=== PATIENT | female | born 1940 | race Caucasian/White ===

== ENCOUNTER 2016-08-31 07:31 | Emergency (ER) | payer MEDICARE, OTHER ==
[2016-08-31 07:58] LABS: APPEARANCE CLOUDY (CLEAR); BILIRUBIN NEGATIVE (NEGATIVE); COLOR YELLOW (YELLOW); GLUCOSE NEGATIVE (NEGATIVE); KETONE NEGATIVE (NEGATIVE); LEUKOCYTE ESTERASE 2+ (NEGATIVE); NITRITE NEGATIVE (NEGATIVE); PROTEIN NEGATIVE (NEGATIVE); UROBILINOGEN NORMAL (NORMAL)
[2016-08-31 08:04] LABS: BACTERIA MODERATE /hpf (NONE SEEN); RED CELLS - URINE 0-5 /hpf (0-5)
[2016-08-31 08:05] LABS: MUCUS <1+ /lpf (NONE SEEN)
[2016-08-31 08:08] LABS: BASOPHILS 0.3 % (0-2); EOSINOPHILS 3.3 % (0-7); HEMATOCRIT 45.4 % (36.0-48.0); HEMOGLOBIN 15.5 g/dL (12-16); IMMATURE GRANULOCYTES 0.4 % (0-5); LYMPHOCYTES 34.9 % (15-50); MCH 33.9 pg (26.0-34.0); MCHC 34.1 g/dL (31.0-37.0); MCV 99.3 fL (80.0-100.0); MEAN PLATELET VOLUME 10.2 fL (7.4-10.4); MONOCYTES 7.3 % (2-11); NEUTROPHILS 53.8 % (40-80); PLATELET COUNT 235 10x3/uL (130-400); RBC 4.57 10x6/uL (4.00-5.40); RDW 12.5 % (11.5-14.5)
[2016-08-31 08:34] LABS: ALBUMIN 3.8 g/dL (3.4-5.0); ANION GAP 13.5 mmol/L (8-16); BILIRUBIN - TOTAL 0.76 mg/dL (0.2-1.3); CALCIUM 9.5 mg/dL (8.5-10.1); CARBON DIOXIDE 28.9 mmol/L (21.0-32.0); CREATININE - SERUM 1.1 mg/dL (0.6-1.3); POTASSIUM - SERUM 4.4 mmol/L (3.5-5.1); PROTEIN - SERUM 7.2 g/dL (6.4-8.2)
== END 2016-08-31 09:00 | disposition home or self-care (01) ==
LOC: D.ER 07:31
PROVIDERS: Emergency Medicine
DX: N39.0 Urinary tract infection, site not specified (principal); M54.5 Low back pain; I10 Essential (primary) hypertension

== ENCOUNTER 2019-05-23 11:40 | Outpatient (CLI) | payer MEDICARE, BC ==
[~2019-05-23] VITALS: Ht 172.7 cm; Wt 63.2 kg
--- NOTE | ~2019-05-23 | OP ---
PATIENT NAME: CHIO RECINOS MEDICAL RECORD: [id number] :40 LOCATION:D.CAT ADMISSION DATE: SURGEON: LEE FOX MD DATE OF OPERATION: 05/23/2019 PROCEDURE: Left heart catheterization, selective coronary angiography, right femoral artery approach. CATHETERS: A 5-Lithuanian sheath, 5/4 left and right Asif, 5/4 pig. The procedure was well tolerated. The patient was returned to hernandez. Sheath removed. ExoSeal device placed. FINDINGS: Left ventriculography in 30-degree WAN view: Normal wall motion, normal systolic function. CORONARY ANATOMY: LEFT MAIN: Left main is free of disease. LAD: Free of disease in the diagonal system. CIRCUMFLEX: Free of disease in the marginal system. RIGHT CORONARY ARTERY: Dominant artery, gives rise to PDA, free of disease. IMPRESSION: Normal LV systolic function, normal coronary anatomy. TRANSINT:[id number] Voice Confirmation ID: [id number] DOCUMENT ID: [id number] LEE FOX MD CC: [id number] DICTATION DATE: 05/23/19 1545 TELEPHONE BETTING CLERK: 05/23/199 DEP CLI 05/23/19 [facility] [address] [place] [address]
--- NOTE | ~2019-05-23 | HEMODYNAMI ---
PATIENT:CHIO RECINOS MEDICAL RECORD: [id number] : 40 LOCATION:D.CAT ADMISSION DATE: 05/23/19 Generatedon:05/23/201915:40 Patient name: CHIO RECINOS Patient #: [id number] : 1940 Date of study: 05/23/2019 Page: Of Hemodynamic Procedure Report Patient Data Patient Demographics Procedure consent was obtained First Name: CHIO Gender: Female Last Name: GRISEL : 1940 Patient #: [id number] Age: 78 year(s) Race: Unknown SSN: [id number] Additional ID: [id number] Contact details [address]: [address] [place] [address] State: [place] City: [place] Zip code: [address] Past Medical History Allergies Allergen Reaction Date Comments Reported Iodine 05/07/2019 Other allergy 05/07/2019 hydrocodone,celebrex Other allergy 05/23/2019 see chrt. iodine Admission Admission Data Admission Date: 05/23/2019 Admission Time: 11:40 Arrival Date: 05/23/2019 Arrival Time: 0:00 Admit Source: Other Insurance Payor: Medicare, Medicaid [facility] #: [id number] Height (in.): 67.72 BSA: 1.75 (m2) Height (cm.): 172 BMI: 21.3 (kg/m2) Weight (lbs.): 138.89 Weight (kg.): 63 Lab Results Lab Result Date: 05/23/2019 Lab Result Time: 0:00 Biochemistry Name Units Result Min Max BUN mg/dl 12 --(-*--)-- 7 18 Creatinine mg/dl 1.2 --(---*)-- 0.6 1.3 eGFR ml/min 46 *-(----)-- 90 120 NONAFRICAN CBC Name Units Result Min Max Hemoglobin g/dl 14.2 --(*---)-- 13.5 17.5 Procedure Procedure Types Cath Procedure Diagnostic Procedure [facility] w/Coronaries Procedure Description Procedure Date Procedure Date: 05/23/2019 Procedure Start Time: 15:30 Procedure End Time: 15:37 Procedure Staff Name Function Gabriel Owens MD Performing Physician Lesley Palma RT Monitor Cathie Dupont RT Scrub Ainsley Cardoso RN Nurse Procedure Data Cath Procedure Fluoroscopy Diagnostic fluoroscopy Total fluoroscopy Time: 0.9 time: 0.9 min min Diagnostic fluoroscopy Total fluoroscopy dose: 174 dose: 174 mGy mGy Contrast Material Contrast Material Type Amount (ml) Isovue 300 52 Entry Location Entry Primary Successful Side Size Upsize Upsize Entry Closure Succes sful Closure Location (Fr) 1 (Fr) 2 (Fr) Remarks Device Remarks Femoral Left 5 Fr Exoseal artery Estimated blood loss: 10 ml Diagnostic catheters Device Type Used For End Catheter Placement MULTIPACK JL 4.0 5Fr Procedure catheter MULTIPACK 3DRC 5Fr Procedure catheter MULTIPACK Pigtail 5 Fr Ventriculography catheter Procedure Complications No complications Procedure Medications Medication Administration Route Dosage Oxygen etCO2 Nasal cannula 2 l/min Lidocaine 2% added to field 20 Heparin Flush Bag added to field 2 bags (1000units/500ml NS) 0.9% NaCl I.V. 100 ml/hr Versed I.V. 1 mg Fentanyl I.V. 50 mcg Versed I.V. 1 mg Fentanyl I.V. 50 mcg Fentanyl I.V. 50 mcg Hemodynamics Rest BSA: 1.75 (m2) HGB: 14.2 (g/dl) O2 Consumption: Estimated: 152.01 (ml/min) O2 Co nsumption indexed: Estimated:86.86 (ml/min/m) Heart Rate: 61 (bpm) Pressure Samples Time Site Value (mmHg) Purpose Heart Use Rate(bpm) 15:34 LV 171/5,12 Snapshot 87 Gradients Valve Time Site Site Mean SEP/DFP Peak To Heart Use 1 2 (mmHg) (sec/min) Peak Rate (mmHg) (bpm) Aortic 15:34 LV AO 93 Snapshots Pre Cath Intra NCS Post Cath Vital Signs Time Heart Resp SPO2 etCO2 NIBP (mmHg) Rhythm Pain Sedation Rate (ipm) (%) (mmHg) Status Level (bpm) 15:21:12 84 15 97 31.4 171/89(143) NSR 0 (11) 10(A) , No pain 15:25:34 81 12 95 28.4 166/75(119) NSR 0 (11) 10(A) , No pain 15:29:52 89 15 97 31.4 164/78(112) NSR 0 (11) 10(A) , No pain 15:34:14 94 22 94 29.9 160/79(125) NSR 0 (11) 10(A) , No pain Medications Time Medication Route Dose Verified Delivered Reason Notes Eff ectiveness by by 15:21:30 Oxygen etCO2 2 Gabriel Schmitz used for Nasal l/min [facility] Ammon Cardoso bowling ball grader cannula 15:21:37 Lidocaine 2% added 20ml Gabriel Gabriel for local to vial [facility] anesthetic field MD OTTO 15:21:44 Heparin Flush added 2 Gabriel Gabriel used for Bag to bags [facility] procedure (1000units/500ml field MD OTTO NS) 15:21:53 0.9% NaCl I.V. 100 Gabriel Schmitz Per ml/hr St Ammon Cardoso RN physician 15:30:49 Versed I.V. 1 mg Gabriel Schmitz for St Ammon Cardoso RN sedation 15:30:55 Fentanyl I.V. 50 Gabriel Linaresie for mcg St Ammon Cardoso RN sedation 15:33:25 Versed I.V. 1 mg Gabriel Schmitz for St Ammon Cardoso RN sedation 15:33:28 Fentanyl I.V. 50 Gabriel Linaresie for mcg St Ammon Cardoso RN sedation 15:36:29 Fentanyl I.V. 50 Gabriel Linaresie for [facility] St Ammon Cardoso RN sedation Procedure Log Time Note 14:59:40 Diagnostic Cath Status : Elective 15:11:28 Admit Source: Other 15:11:32 Arrival Date: 05/23/2019 12:00:00 AM 15:11:58 Insurance Payor : Medicare, Medicaid 15:13:22 Patient Height : 67.72 inches 15:13:27 Patient Weight : 138.89 lbs 15:14:31 Lab Result : Hemoglobin 14.2 g/dl 15:14:31 Lab Result : eGFR NONAFRICAN 46 ml/min 15:14:31 Lab Result : BUN 12 mg/dl 15:14:31 Lab Result : Creatinine 1.2 mg/dl 15:14:49 Procedure Status Elective Heart Cath (OP). 15:14:52 Ainsley Cardoso RN sent for patient. Start room use. 15:15:04 Time tracking: Regular hours (M-F 7:00 - 5:00) 15:15:10 Plan of Care:Hemodynamics will remain stable., Cardiac rhythm will remain stable., Comfort level will be maintained., Respiratory function will remain adequate., Patient/ family verbilizes understanding of procedure., Procedure tolerated without complication., Recovers from procedure without complications.. 15:15:18 Patient received from Pre/Post Procedure Room to CCL 2 Alert and oriented. Tansferred to table in Supine position. 15:15:20 Signed procedure consent form obtained from patient. 15:15:21 Warm blankets applied, and abundio hugger turned on for patient comfort. 15:15:21 Correct patient and procedure confirmed by team. 15:15:22 ECG and BP/O2 sat monitors applied to patient. 15:15:34 Pre-procedure instructions explained to patient. 15:15:36 Family in waiting room. 15:15:39 Patient NPO since Midnight. 15:16:00 Patient allergic to Other allergysee chrt. iodine 15:16:03 Is the patient allergic to Iodine/contrast media? Yes. 15:16:05 Was the patient premedicated? Yes 15:16:06 Is patient on blood thinner?Yes 15:16:09 ACC The patient was administered the following blood thiners within the last 24 hours: ACCPlavix 15:16:12 Patient diabetic? No. 15:16:16 Snore? Yes 15:16:18 Sleep apnea? No 15:16:25 Dentures? Yes tight 15:16:37 IV patent on arrival in right forearm with 0.9% NaCl at [facility]. 15:16:48 Lab results completed and on chart. 15:17:10 Stress Test: yes; abnormal anterior apical 15:19:12 Risk of Mortality: .4 15:19:15 Risk of blood transfusion: 2.1 15:19:18 Risk of JULI: 2.0 15:19:23 Left groin area was prepped with chlora-prep and draped in sterile fashion 15:19:24 Alarms reviewed by R. N. 15:19:25 Sharps counted by scrub and verified by R.N. 15:19:26 Physician paged 15:19:30 Physician arrived 15:19:34 Left groin site verified by team. 15:19:38 Fire Safety Assessment: A--An alcohol-based skin anteseptic being used preoperatively., C--Open oxygen or nitrous oxide is being used., D--An ESU, laser, or fiber-optic light is being used. 15:19:43 Physical assessment completed. ASA score P 2 - A patient with mild systemic disease as per Gabriel Owens MD. 15:19:47 3a) 45-59 Moderately reduced kidney function. 15:19:51 Maximum allowable contrast dose (3.7 X eGFR X 0.75)127 ml. 15:19:55 Sedation plan: IV Moderate Sedation Medication:Versed, Fentanyl 15:20:00 Vital chart was started 15:20:04 Baseline sample Acquired. 15:20:08 Rhythm: sinus rhythm 15:20:10 Full Disclosure recording started 15:21:30 Oxygen 2 l/min etCO2 Nasal cannula was administered by Ainsley Cardoso RN; used for procedure; Verbal order read back and verified. 15:21:37 Lidocaine 2% 20ml vial added to field was administered by Gabriel Owens MD; for local anesthetic; Verbal order read back and verified. 15:21:44 Heparin Flush Bag (1000units/500ml NS) 2 bags added to field was administered by Gabriel Owens MD; used for procedure; Verbal order read back and verified. 15:21:53 0.9% NaCl 100 ml/hr I.V. was administered by Ainsley Cardoso RN; Per physician; Verbal order read back and verified. 15:30:09 --------ALL STOP TIME OUT------ 15:30:10 Final Timeout: patient, procedure, and site verified with staff and physician. All members of the team are in agreement. 15:30:29 Procedure started. 15:30:38 Local anesthetic to left femerol artery with Lidocaine 2% by Gabriel Owens MD.INITIAL ACCESS ONLY 15:30:47 A 5 Fr sheath was inserted into the Left Femoral artery 15:30:49 Versed 1 mg I.V. was administered by Ainsley Cardoso RN; for sedation; Verbal order read back and verified. 15:30:55 Fentanyl 50 mcg I.V. was administered by Ainsley Cardoso RN; for sedation; Verbal order read back and verified. 15:30:55 J wire advanced. 15:31:22 Use device set Femoral Dx 15:31:24 ACIST Syringe (19166) opened to sterile field. 15:31:25 Bag Decanter (2002S) opened to sterile field. 15:31:25 Medline Cath Pack ([id number]) opened to sterile field. 15:31:26 ACIST Hand Control (97913) opened to sterile field. 15:31:27 ACIST Manifold (67388) opened to sterile field. 15:31:27 DIAGNOSTIC Multipack 5Fr catheter set (BL3390) opened to sterile field. 15:31:28 Tegaderm 4 x 4 (1626W) opened to sterile field. 15:31:31 SHEATH 5FR Earleton (MYV231) opened to sterile field. 15:31:31 EMERALD Guide Wire (035-258) opened to sterile field. 15:31:37 A MULTIPACK JL 4.0 5Fr catheter was advanced over the wire and used for Procedure. 15:31:59 LCA angiography performed. 15:32:28 Catheter removed. 15:32:36 A MULTIPACK 3DRC 5Fr catheter was advanced over the wire and used for Procedure. 15:32:39 RCA angiography performed. 15:33:23 Catheter removed. 15:33:25 Versed 1 mg I.V. was administered by Ainsley Cardoso RN; for sedation; Verbal order read back and verified. 15:33:28 Fentanyl 50 mcg I.V. was administered by Ainsley Cardoso RN; for sedation; Verbal order read back and verified. 15:33:30 A MULTIPACK Pigtail 5 Fr catheter was advanced over the wire and used for Ventriculography. 15:33:32 Zero performed for pressure channel P1 15:33:46 LV angiography performed. 15:33:50 LV gram done using WAN 15:34:38 EF : 55 % 15:34:48 EXOSEAL 5Fr (EX500) opened to sterile field. 15:34:56 Catheter removed. 15:35:05 Sheath removed intact; hemostasis achieved with Exoseal to the Left Femoral artery. 15:35:08 Procedure ended.(Physican Out) 15:35:26 Fluoroscopy time 00.90 minutes. 15:35:34 Fluoroscopy dose: 174 mGy 15:35:34 Flurop Dose total: 174 15:35:40 Dose Area Product 9839 mGy/cm. 15:35:43 Contrast amount:Isovue 300 52ml. 15:35:50 Maximum allowable dose exceeded? No. 15:35:50 Sharps counted by scrub and verified by R.N. 15:35:52 Insertion/operative site no bleeding no hematoma. 15:36:02 Post Procedure Pulses reassessed and unchanged 15:36:07 Post-procedure physical assessment completed. ASA score P 2 - A patient with mild systemic disease as per Gabriel Owens MD. 15:36:10 Post procedure rhythm: unchanged. 15:36:13 Estimated blood loss: 10 ml 15:36:14 Post procedure instruction explained to patient.Patient verbalizes understanding. 15:36:23 Procedure and supply charges have been captured, reviewed, submitted and are correct. 15:36:29 Fentanyl 50 mcg I.V. was administered by Ainsley Cardoso RN; for sedation; Verbal order read back and verified. 15:36:44 Procedure Complication : No complications 15:36:47 Vital chart was stopped 15:36:49 [facility] Findings: mild to moderate CAD (<70%) 15:36:52 Operative report dictated upon procedure completion. 15:36:52 See physician's report for complete and final results. 15:36:55 Report given to Pre/Post Procedure Room. 15:36:58 Patient transfered to Pre/Post Procedure Room with Stretcher. 15:37:00 Procedure ended. 15:37:00 Full Disclosure recording stopped 15:37:07 End room use (Document Last) 15:37:47 End room use (Document Last) 15:38:39 End room use (Document Last) Device Usage Item Name Manufacture Quantity Catalog Hospital Part Current Minimal L ot# / Number Charge Number Stock Stock Serial# Code ACIST Acist 1 66532 446207 267162 424160 20 Syringe Medical (46978) Systems Inc Bag Microtek 1 478943 42290 974349 5 Decanter Medical Inc. () Medline Medline 1 [id number] 857811 61613 944711 5 Cath Pack ([id number]) ACIST Hand Acist 1 69550 974124 332662 181683 5 Control Medical (75882) Systems Inc ACIST Acist 1 18638 652915 277765 631782 5 Manifold Medical (35988) Systems Inc DIAGNOSTIC Cardinal 1 CO4016 277232 89531 895207 30 Multipack Health 5Fr catheter set (JS6083) Tegaderm 4 3M 1 1626W 791916 738273 079589 5 x 4 (1626W) SHEATH 5FR Terumo 1 SDK219 207462 927617 826838 5 Ear[place] (GOO106) EMERALD Cardinal 1 502-455 811606 035006 383074 5 Guide Wire Health (502455) MULTIPACK Cardinal 1 268787 5 JL 4.0 5Fr Health catheter MULTIPACK Cardinal 1 235634 5 3DRC 5Fr Health catheter MULTIPACK Cardinal 1 729592 5 Pigtail 5 Health Fr catheter EXOSEAL 5Fr Cardinal 1 EX500 559795 991771 257509 10 (EX500) Health Signature Audit [place] Stage Time Signature Unsigned Intra-Procedure 05/23/2019 Lesley Palma 3:37:47 PM RT(R) Intra-Procedure 05/23/2019 Ainsley Cardoso RN 3:38:39 PM Intra-Procedure 05/23/2019 Gabriel Griffin 3:40:30 PM Ammon OTTO Signatures Performing Physician : Signature : Gabriel Owens MD Date : Time : Monitor : Lesley Palma Signature : RT Date : Time : Nurse : Ainsley Cardoso RN Signature : Date : Time : [facility] [address] [place] [address]
[~2019-05-23 11:40] MED LIST: BUPROPION XL300 MG PO; CARDURA2 MG PO; CATAPRES0.1 MG PO; CILOSTAZOL100 MG PO; LISINOPRIL20 MG PO; SOMA350 MG; TENORMIN100 MG PO; TRAZODONE HCL150 MG PO; XANAX0.5 MG PO
[2019-05-23] MEDS ORDERED: BAYER CHEWABLE81 MG PO (13:11)
[2019-05-23] MEDS ORDERED: PLAVIX75 MG PO ×2 (13:11)
[2019-05-23 13:40] VITALS: BP 183/69; Ht 172.7 cm; Wt 63.2 kg
[2019-05-23 13:40] LABS: BASOPHILS 0.1 % (0-2); EOSINOPHILS 0.1 % (0-7); HEMATOCRIT 41.4 % (36.0-48.0); HEMOGLOBIN 14.2 g/dL (12-16); IMMATURE GRANULOCYTES 0.1 % (0-5); LYMPHOCYTES 10.4 % (15-50); MCH 33.7 pg (26.0-34.0); MCHC 34.3 g/dL (31.0-37.0); MCV 98.3 fL (80.0-100.0); MEAN PLATELET VOLUME 9.6 fL (7.4-10.4); MONOCYTES 0.8 % (2-11); NEUTROPHILS 88.5 % (40-80); PLATELET COUNT 257 10x3/uL (130-400); RBC 4.21 10x6/uL (4.00-5.40); RDW 12.8 % (11.5-14.5); WBC 11.2 10x3/uL (4.8-10.8)
[2019-05-23 13:54] LABS: ANION GAP 14.6 mmol/L (8-16); CALCIUM 9.4 mg/dL (8.5-10.1); CARBON DIOXIDE 24.2 mmol/L (21.0-32.0); CHOL - HDL RATIO 3.4 ratio (2.3-4.1); CREATININE - SERUM 1.2 mg/dL (0.6-1.3); LDL-HDL RATIO 2.2 ratio (1.5-3.5); POTASSIUM - SERUM 3.8 mmol/L (3.5-5.1)
== END 2019-05-23 18:00 | disposition home or self-care (01) ==
LOC: D.CATH 11:40
PROVIDERS: ATTEND Internal Medicine Interventional Cardiology
DX: I20.9 Angina pectoris, unspecified (principal); I10 Essential (primary) hypertension; E78.5 Hyperlipidemia, unspecified; I73.9 Peripheral vascular disease, unspecified

== ENCOUNTER → 2020-08-15 08:57 | Outpatient (CLI) | payer MEDICARE, BC ==
[2019-05-23 13:40] VITALS: BMI 21.1
[~2020-08-15 08:57] MED LIST changes: +BAYER CHEWABLE81 MG PO; +PLAVIX75 MG PO
== END | disposition home or self-care (01) ==
LOC: D.CT 08:57
PROVIDERS: ATTEND General Practice
DX: I70.212 Atherosclerosis of native arteries of extremities with intermittent claudication, left leg (principal)

== ENCOUNTER 2020-09-19 10:26 | Outpatient (CLI) | payer MEDICARE, BC ==
--- NOTE | 2020-09-12 12:32 | NUR ---
CONFIRMED PT APPT FOR 09/15/20 FOR LIVER BIOPSY NPO: PT VERBALIZED UNDERSTANDING TO TAKE BP MED WITH SIP OF WATER. THINNER: PT HAS CONTINUED ASA PER ORDER FROM DR BURDICK ARRIVAL TIME: 0730 [employer] ARCHITECT: YES -
[2020-09-15 07:40] LABS: HEMATOCRIT 42.7 % (36.0-48.0); HEMOGLOBIN 14.5 g/dL (12-16); MCH 33.1 pg (26.0-34.0); MCV 97.3 fL (80.0-100.0); MEAN PLATELET VOLUME 7.7 fL (7.4-10.4); PLATELET COUNT 273 10x3/uL (130-400); RBC 4.39 10x6/uL (4.00-5.40); RDW 13.3 % (11.5-14.5); WBC 7.4 10x3/uL (4.8-10.8)
[2020-09-15 07:48] LABS: ANION GAP 10.3 mmol/L (8-16); CALCIUM 8.9 mg/dL (8.5-10.1); CARBON DIOXIDE 31.9 mmol/L (21.0-32.0); CREATININE - SERUM 1.2 mg/dL (0.6-1.3); POTASSIUM - SERUM 4.2 mmol/L (3.5-5.1)
[2020-09-15 08:33] LABS: APTT 25.1 SECONDS (22.8-39.4); INR 0.98 (0.85-1.17)
--- NOTE | 2020-09-15 10:33 | NUR ---
PROCEDURE CANCELLED DUE TO IODINE ALLERGY AND NO PRE-MEDICATION
[2020-09-15 13:46] LABS: ANISOCYTOSIS OCC; EOSINOPHILS 3 % (0-7); LYMPHOCYTES 59 % (15-50); MONOCYTES 5 % (2-11); NEUTROPHILS 32 % (40-80); PLATELET ESTIMATE NORMAL; ROULEAUX OCC
[~2020-09-19] VITALS: Ht 172.7 cm; Wt 63.6 kg
--- NOTE | ~2020-09-19 | HEMODYNAMI ---
PATIENT:CHIO RECINOS MEDICAL RECORD: [id number] : 40 LOCATION:AG ADMISSION DATE: 09/19/20 Generatedon:116:03 Patient name: CHIO RECINOS Patient #: [id number] : 1940 Date of study: 09/19/2020 Page: Of Hemodynamic Procedure Report Patient Data Patient Demographics Procedure consent was obtained First Name: CHIO Gender: Female Last Name: GRISEL : 1940 Patient #: [id number] Age: 80 year(s) Race: Unknown SSN: [id number] Additional ID: [id number] Contact details [address]: [address] [place] [address] State: [place] City: [place] Zip code: [address] Past Medical History Allergies Allergen Reaction Date Comments Reported Iodine 05/07/2019 Other allergy 05/07/2019 hydrocodone,celebrex Other allergy 05/23/2019 see chrt. iodine Other allergy 09/19/2020 iodine, hydrocodone, codeine, statins Admission Admission Data Admission Date: 09/19/2020 Admission Time: 10:26 Procedure Procedure Types Cath Procedure Peripheral Cath Diagnostic Procedure Abd/Extremity Extremities Bilat Lower Extremity Procedure Description Procedure Date Procedure Date: 09/19/2020 Procedure Start Time: 14:47 Procedure End Time: 16:02 Procedure Staff Name Function Ammon Chowdhury MD Performing Physician YULY HERNÁNDEZ RT Monitor Kali Cho RT Scrub Ibis William RN Nurse Procedure Data Cath Procedure Fluoroscopy Diagnostic fluoroscopy Total fluoroscopy Time: time: 14.1 min 14.1 min Contrast Material Contrast Material Type Amount (ml) Isovue 300 145 Entry Location Entry Primary Successful Side Size Upsize Upsize Entry Closure Succes sful Closure Location (Fr) 1 (Fr) 2 (Fr) Remarks Device Remarks Femoral Right 5 Fr 6 Fr 6 Fr Exoseal artery Long Short Procedure Medications Medication Administration Route Dosage Hydralizine I.V. 20 mg Benadryl I.V. 50 mg Versed I.V. 1 mg Fentanyl I.V. 50 mcg Versed I.V. 1 mg Fentanyl I.V. 50 mcg Heparin Bolus I.V. 5000 units Versed I.V. 1 mg Fentanyl I.V. 50 mcg Nitroglycerin IC/IA I.A. 300 mcg Hemodynamics Rest Heart Rate: 103 (bpm) Snapshots Pre Cath Intra NCS Post Cath Vital Signs Time Heart Resp SPO2 etCO2 NIBP (mmHg) Rhythm Pain Sedation Rate (ipm) (%) (mmHg) Status Level (bpm) 13:50:47 0 Measuring NSR 0 (11) 10(A) , No pain 13:51:26 0 207/79(89) NSR 0 (11) 10(A) , No pain 13:55:56 101 21 99 26.2 207/103(151) NSR 0 (11) 10(A) , No pain 14:00:29 86 12 100 33 195/90(137) NSR 0 (11) 10(A) , No pain 14:05:22 99 13 100 17.2 189/82(128) NSR 0 (11) 10(A) , No pain 14:10:21 97 25 100 22.5 Measuring NSR 0 (11) 10(A) , No pain 14:10:39 99 19 100 24.7 177/78(114) NSR 0 (11) 10(A) , No pain 14:15:07 106 18 100 25.5 185/78(126) NSR 0 (11) 10(A) , No pain 14:19:29 100 15 100 25.5 175/77(126) NSR 0 (11) 10(A) , No pain 14:23:52 102 10 100 21.7 173/77(141) NSR 0 (11) 10(A) , No pain 14:28:12 87 21 100 24.7 161/70(117) NSR 0 (11) 9(A) , No pain 14:32:32 97 20 100 16.5 150/65(108) NSR 0 (11) 8(A) , No pain 14:36:50 95 20 100 28.5 150/67(103) NSR 0 (11) 8(A) , No pain 14:41:14 96 20 99 27.7 138/64(95) NSR 0 (11) 8(A) , No pain 14:45:32 96 15 99 27 147/67(97) NSR 0 (11) 8(A) , No pain 14:49:48 98 18 99 29.2 137/59(99) NSR 0 (11) 8(A) , No pain 14:54:09 97 62 98 31.5 118/52(82) NSR 0 (11) 8(A) , No pain 14:58:22 97 29 98 31.4 121/55(88) NSR 0 (11) 8(A) , No pain 15:02:34 95 31 98 31.4 127/56(86) NSR 0 (11) 8(A) , No pain 15:06:46 99 47 98 26.2 108/66(75) NSR 0 (11) 8(A) , No pain 15:11:45 91 7 99 28.5 Measuring NSR 0 (11) 8(A) , No pain 15:11:47 91 7 99 29.2 130/54(95) NSR 0 (11) 8(A) , No pain 15:16:01 90 27 99 27.7 129/54(93) NSR 0 (11) 8(A) , No pain 15:20:20 92 18 99 30 128/56(88) NSR 0 (11) 8(A) , No pain 15:24:36 93 15 98 27.7 131/56(90) NSR 0 (11) 8(A) , No pain 15:28:54 92 19 98 31.5 121/51(81) NSR 0 (11) 8(A) , No pain 15:33:10 88 11 98 32.2 112/53(85) NSR 0 (11) 8(A) , No pain 15:37:24 91 10 98 31.4 104/46(68) NSR 0 (11) 8(A) , No pain 15:41:34 90 12 98 32.9 106/53(76) NSR 0 (11) 8(A) , No pain 15:45:41 90 11 98 29.9 119/58(80) NSR 0 (11) 8(A) , No pain 15:49:55 86 12 98 29.9 121/54(76) NSR 0 (11) 8(A) , No pain 15:54:01 85 11 99 26.2 113/60(82) NSR 0 (11) 8(A) , No pain 15:58:13 82 13 98 32.2 125/59(98) NSR 0 (11) 8(A) , No pain 16:02:27 85 10 98 25.4 110/52(82) NSR 0 (11) 8(A) , No pain Medications Time Medication Route Dose Verified Delivered Reason Notes Effec tiveness by by 13:58:21 Hydralizine I.V. 20 mg Ammon Baumann for Stewart Chowdhury RN hypertension MD 14:06:37 Benadryl I.V. 50 mg Stewart Paul RN, MD 14:30:18 Versed I.V. 1 mg Stewart Paul RN, MD 14:30:41 Fentanyl I.V. 50 Stewart Ballesteros RN, MD 14:50:58 Versed I.V. 1 mg Stewart Paul RN, MD 14:51:10 Fentanyl I.V. 50 Stewart Ballesteros RN, MD 15:03:08 Heparin Bolus I.V. 5000 Ammon Baumann Per units Stewart Chowdhury RN physician 15:24:51 Versed I.V. 1 mg Stewart Paul RN, MD 15:24:59 Fentanyl I.V. 50 Stewart Ballesteros RN, MD 15:39:29 Nitroglycerin I.A. 300 Ammon Verde IC/IA Luciana Rodrigez MD MD Procedure Log Time Note 12:52:08 Use device set IR Diagnostic 12:52:09 ACIST Syringe (64948) opened to sterile field. 12:52:10 ACIST Hand Control (85748) opened to sterile field. 12:52:11 ACIST Manifold (84302) opened to sterile field. 12:52:12 Bag Decanter (2001S) opened to sterile field. 12:52:12 Sterile Angiographic Pack opened to sterile field. 12:52:15 Tegaderm 4 x 4 (1626W) opened to sterile field. 12:53:36 SHEATH 5FR [place] (CZT192) opened to sterile field. 12:53:36 GLIDE CATHETER 5FR ANGLED 65cm (CG507) opened to sterile field. 12:53:37 BLACKWELL 260 wire (R37528) opened to sterile field. 12:53:37 MICROPUNCTURE 4FR [employer] (Q59533) opened to sterile field. 12:53:38 GLIDE WIRE ANGLE 260cm (VD5934) opened to sterile field. 12:53:38 TUBING High Pressure Extension (IABP) opened to sterile field. 12:53:38 DOC Extension wire (13605) opened to sterile field. 13:48:58 Vital chart was started 13:49:45 Kali Cho RT (R) (CV) sent for patient. Start room use. 13:49:46 Time tracking: Regular hours (M-F 7:00 - 5:00) 13:49:52 Plan of Care:Hemodynamics will remain stable., Cardiac rhythm will remain stable., Comfort level will be maintained., Respiratory function will remain adequate., Patient/ family verbilizes understanding of procedure., Procedure tolerated without complication., Recovers from procedure without complications.. 13:50:01 Patient received from Outpatients to IR Alert and oriented. Tansferred to table in Supine position. 13:50:02 Signed procedure consent form obtained from patient. 13:50:03 Warm blankets applied, and abundio hugger turned on for patient comfort. 13:50:04 Correct patient and procedure confirmed by team. 13:50:04 ECG and BP/O2 sat monitors applied to patient. 13:50:08 - 13:50:12 H&P Date Dictated: 09/19/2020 H&P Addendum completed by physician on day of procedure. (MUST COMPLETE FOR ALL OUTPATIENTS). 13:50:14 Pre-procedure instructions explained to patient. 13:50:14 Pre-op teaching completed and patient verbalized understanding. 13:50:18 Patient NPO since Midnight. 13:51:09 Patient allergic to Other allergyiodine, hydrocodone, codeine, statins 13:51:11 Is the patient allergic to Iodine/contrast media? Yes. 13:51:12 Was the patient premedicated? Yes 13:51:13 Is patient on blood thinner?Yes 13:51:16 ACC The patient was administered the following blood thiners within the last 24 hours: ACCAspirin 13:51:20 Patient diabetic? Yes. 13:51:23 - 13:51:24 ----Pre-sedation anethsthesia assessment.---- 13:51:28 Previous problem with sedation/anesthesia? No ? 13:51:29 Snore? Yes 13:51:30 Sleep apnea? No 13:51:32 Deviated septum? No 13:51:32 Opens mouth fully? Yes 13:51:33 Sticks out tongue? Yes 13:51:36 Airway obstruction? No ? 13:51:40 Dentures? No ? 13:51:41 - 13:56:38 Pre procedure: left dorsailis pedis pulse Doppler 13:56:44 Pre procedure: right posterior tibial pulse Doppler 13:56:53 IV patent on arrival in left wrist with 0.45%NaCl at KVO. 13:56:57 Baseline sample Acquired. 13:56:58 Full Disclosure recording started 13:57:00 - 13:57:14 Right groin area was prepped with chlora-prep and aped in sterile fashion 13:57:15 Alarms reviewed by Rodger Rosario 13:57:15 Sharps counted by scrub and verified by [place] 13:57:16 - 13:58:21 Hydralizine 20 mg I.V. was administered by Ibis William RN; for hypertension; Verbal order read back and verified. 14:06:37 Benadryl 50 mg I.V. was administered by Ibis William RN; ; Verbal orde r read back and verified. 14:24:49 Angiodynamics Omniflush 5Fr 65cm ([id number]) opened to sterile field. 14:30:18 Versed 1 mg I.V. was administered by Ibis William RN; ; Verbal order read back and verified. 14:30:41 Fentanyl 50 mcg I.V. was administered by Ibis William RN; ; Verbal order read back and verified. 14:46:23 Physician arrived 14:46:24 --------ALL STOP TIME OUT------ 14:46:25 Final Timeout: patient, procedure, and site verified with staff and physician. All members of the team are in agreement. 14:46:28 Right groin site verified by team. 14:46:32 3a) 45-59 Moderately reduced kidney function. 14:46:40 Procedure started. 14:47:06 Local anesthetic to right femoral artery with Lidocaine 1% by Ammon Chowdhury MD.INITIAL ACCESS ONLY 14:47:07 Access obtained with 4Fr micropunture. 14:47:15 A 5 Fr sheath was inserted into the Right Femoral artery 14:50:58 Versed 1 mg I.V. was administered by Ibis William RN; ; Verbal order read back and verified. 14:51:10 Fentanyl 50 mcg I.V. was administered by Ibis William RN; ; Verbal order read back and verified. 14:53:34 TORQUE DEVICE PLASTIC .038 ( TD01) opened to sterile field. 14:59:49 Sheath upsized to a 6 Fr Long. 14:59:58 SHEATH DESTINATION 6FR X 65CM (RSP01) opened to sterile field. 15:03:08 Heparin Bolus 5000 units I.V. was administered by Ibis William RN; Per physician; Verbal order read back and verified. 15:03:34 CXI Catheter 90cm (W77683) opened to sterile field. 15:14:34 Hawkone Medium Atherectomy System (H1-M) opened to sterile field. 15:14:34 SPIDER EMBOLIC PROTECTION DEVICE 5MM ([id number]) opened to sterile field. 15:24:51 Versed 1 mg I.V. was administered by Ibis William RN; ; Verbal order read back and verified. 15:24:59 Fentanyl 50 mcg I.V. was administered by Ibis William RN; ; Verbal order read back and verified. 15:29:59 Inflate balloon Inflation number: 1 A IN.PACT Admiral 4 x 40 x 130 DCB Balloon ([id number]) was prepped and advanced across the Mid Common Femoral, Left , then inflated. 15:35:44 CHOICE PT Floppy Straight 300cm guide wire ([id number]) opened to sterile field. 15:35:45 CHOICE PT Floppy Straight 300cm guide wire (65807838) opened to sterile field. 15:35:46 CXI SUPPORT .035 135 CM STR catheter (U59601) opened to sterile field. 15:39:29 Nitroglycerin IC/IA 300 mcg I.A. was administered by Ammon Chowdhury MD; ; Verbal order read back and verified. 15:42:08 Inflate balloon Inflation number: 1 A [place]OSS [place] 3.0-2.5X210 ([id number]) was prepped and advanced across the Mid Anterior Tibial, Left , then inflated . 15:46:38 SHEATH 6FR [place] (GMF175) opened to sterile field. 15:51:46 EXOSEAL 6Fr (EX600) opened to sterile field. 15:51:57 Sheath upsized to a 6 Fr Short. 15:51:57 Sheath removed intact; hemostasis achieved with Exoseal to the Right Femoral artery. 15:53:05 Procedure ended.(Physican Out) 15:54:05 Fluoroscopy time 14.10 minutes. 15:54:08 Dose Area Product 171 mGy/cm. 15:54:13 Contrast amount:Isovue 300 145ml. 15:54:15 Sharps counted by scrub and verified by R.N. 15:54:17 Post procedure instruction explained to patient.Patient verbalizes understanding. 15:54:22 Post-op/insertion site Right Femoral artery dressed using a 4 x 4 and Tegaderm. 15:54:46 Procedure and supply charges have been captured, reviewed, submitted an d are correct. 16:02:34 Vital chart was stopped 16:02:38 See physician's report for complete and final results. 16:02:43 Report given to Outpatients. 16:02:45 Procedure ended. 16:02:45 Full Disclosure recording stopped 16:02:54 End room use (Document Last) Intervention Summary Intervention Notes Time ActionType Lesion and Equipment Used Action# Pressure Duration Attributes 15:29:59 Inflate Mid Common IN.PACT Admiral 1 0 00:00 balloon Femoral, 4 x 40 x 130 DCB Left Balloon ([id number]) 15:42:08 Inflate Mid [place]ITE 1 0 00:00 balloon Anterior 3.0-2.5X210 Tibial, ([id number]) Left Device Usage Item Name Manufacture Quantity Catalog Number [facility] Minimal Lot# / Charge Number Stock Stock Serial# Code ACIST Syringe Acist Medical 1 95897 305409 643214 17377 1 20 (43987) Systems Inc ACIST Hand Acist Medical 1 76823 854163 029681 30595 3 5 Control (30864) Systems Inc ACIST Manifold Acist Medical 1 61886 037052 253346 35239 8 5 (17264) Systems Inc Bag Decanter Microtek 1 2001S 221887 66938 54311 5 5 (2001S) Medical Inc. Sterile Cardinal 1 [id number] 131155 92831 2 5 Angiographic Health Pack Tegaderm 4 x 4 3M 1 1626W 720101 358745 77728 9 5 (1626W) SHEATH 5FR Terumo 1 OSW517 626779 919278 27176 5 5 [place] (LDK024) GLIDE CATHETER Terumo 1 CG507 784246 89826 1 5 5FR ANGLED 65cm (CG507) BLACKWELL 260 wire [employer] 1 H91995 087516 994802 14020 1 5 (J51276) MICROPUNCTURE [facility] 1 L45717 889162 505951 32812 2 5 4FR [employer] (O81860) GLIDE WIRE ANGLE Terumo 1 QN6782 123263 243676 76160 4 5 260cm (EA9845) TUBING [facility] 1 [id number] 926761 564464 65781 2 5 Pressure Extension (IABP) DOC Extension Sesay 1 42152 112069 456340 96999 0 5 wire (37864) Vascular Angiodynamics Angiodynamics 2 00103297 112156 391182 20069 3 5 Omniflush 5Fr 65cm (78968458) TORQUE DEVICE Iola 1 TD01 196428 227936 18792 0 5 PLASTIC .038 ( Scientific TD01) SHEATH Terumo 1 RSP01 711481 95891 07933 5 1 DESTINATION 6FR X 65CM (RSP01) CXI Catheter [facility] 1 F57529 475374 543648 97010 9 5 90cm (R84488) Hawkone Medium Medtronic 1 H1-M 993097 21235 925 5 Atherectomy System (H1-M) SPIDER EMBOLIC Medtronic 1 PLJ9-BC-793-320 290444 26269 4 5 PROTECTION DEVICE 5MM ([id number]) IN.PACT Admiral Medtronic 1 [id number] 112016 595045 83553 2 5 4 x 40 x 130 DCB Balloon ([id number]) CXI SUPPORT .035 [facility] 2 Z18494 866337 602025 71045 8 5 135 CM STR catheter (W89751) CHOICE PT Floppy [place] 2 [id number] 115877 20180827 00482 9 5 Straight 300cm Scientific guide wire (73428404) NANOCROSS ELITE Medtronic 1 [id number] 168887 73093 5 1 3.0-2.5X210 ([id number]) SHEATH 6FR Terumo 1 FAP212 406300 642376 65261 1 40 [place] (AQS885) EXOSEAL 6Fr Cardinal 2 EX600 795718 166219 80659 4 10 (EX600) Health Signature Audit [place] Stage Time Signature Unsigned Intra-Procedure 09/19/2020 YULY HERNÁNDEZ RT 4:03:10 PM (R) [facility] [address] [place] [address]
[2020-09-19 10:57] LABS: BASOPHILS 0.2 % (0-2); EOSINOPHILS 0 % (0-7); HEMATOCRIT 43.3 % (36.0-48.0); HEMOGLOBIN 14.6 g/dL (12-16); LYMPHOCYTES 26.8 % (15-50); MCH 33.2 pg (26.0-34.0); MCHC 33.7 g/dL (31.0-37.0); MCV 98.3 fL (80.0-100.0); MEAN PLATELET VOLUME 7.7 fL (7.4-10.4); MONOCYTES 3.3 % (2-11); NEUTROPHILS 69.7 % (40-80); PLATELET COUNT 267 10x3/uL (130-400); RBC 4.41 10x6/uL (4.00-5.40); RDW 13.3 % (11.5-14.5); WBC 9.3 10x3/uL (4.8-10.8)
[2020-09-19 11:06] LABS: INR 1.07 (0.85-1.17); PROTIME 12.9 SECONDS (11.6-15.0)
[2020-09-19 11:10] LABS: ANION GAP 12.6 mmol/L (8-16); CALCIUM 9.3 mg/dL (8.5-10.1); CARBON DIOXIDE 28.5 mmol/L (21.0-32.0); CREATININE - SERUM 1.2 mg/dL (0.6-1.3); POTASSIUM - SERUM 4.1 mmol/L (3.5-5.1)
[2020-09-19] MEDS ORDERED: VITAMIN D31250 MCG PO (13:00)
[2020-09-19] MEDS ORDERED: FLUTICASONE PRO16 GM NASAL (13:01)
[2020-09-19] MEDS ORDERED: XALATAN 0.0052.5 ML EACH EYE (13:02)
[2020-09-19] MEDS ORDERED: OMEPRAZOLE20 M1 PO (13:03)
[2020-09-19 13:13] VITALS: BP 211/87; Ht 172.7 cm; Wt 63.6 kg
--- NOTE | 2020-09-19 18:24 | NUR ---
1710 DR. BURDICK AT BEDSIDE. PLAVIX 75 MMG PO MICHELLE CALLED INTO [facility].
--- NOTE | 2020-09-19 18:26 | NUR ---
1825 DISCHARGE INSTRUCTIONS GIVEN AN PT VERBALIZED AN UNDERSTANDING
--- NOTE | 2020-09-19 19:01 | NUR ---
IV D/C'D WITH CANNULA INTACT, PRESSURE HELD AND DRSG PLACED. GROIN WITHOUT BLEEDING OR S\S OF HEMATOMA.
== END 2020-09-19 18:00 ==
LOC: D.RAD 10:26
PROVIDERS: ATTEND General Practice
DX: I70.212 Atherosclerosis of native arteries of extremities with intermittent claudication, left leg (principal)